=== PATIENT | female | born 1940 | race Caucasian/White ===

== ENCOUNTER 2022-07-16 09:46 | Outpatient (CLI) | payer MEDICARE, SELFPAY ==
--- NOTE | ~2022-07-16 | MM_ITS ---
EXAMINATION: MM screening joseph BI w starr HISTORY: Screening mammogram TECHNIQUE: Craniocaudal and mediolateral oblique 3-D tomosynthesis images were obtained and synthetic 2-D images were generated. CAD analysis was submitted and interpreted. COMPARISON: 06/16/2018 postbiopsy mammogram 05/20/2018 bilateral screening mammogram BREAST PARENCHYMAL COMPOSITION: There are scattered areas of fibroglandular density. FINDINGS: Multiple scattered bilateral microcalcifications are noted. There is no evidence of suspici ous mass, calcification, or architectural distortion to suggest malignancy in either breast. There newton s been no suspicious interval change. IMPRESSION: 1. No mammographic evidence of malignancy. 2. Recommend routine screening mammography in one year. BI-RADS Category 2: Benign finding(s). Reviewed, dictated and finalized at location A. [employer]
--- NOTE | ~2022-07-16 | DEXA_ITS ---
Bone Density Report Name: HEIDY CAMPBELL Age: 82 Sex: Female Ethnicity: White Date of : 1940 Indication: postmenopausal; screening for osteoporosis; height loss; hysterectomy; Referring Provider: LEMUEL KRAMER Study: Bone densitometry was performed. Exam Date: July 16, 2022 Accession number: [id number] Bone Density: Region BMD T-score Z-score Classification AP Spine(L1, L2, L3) 1.092 0.7 3.4 Normal Femoral Neck (Left) 0.687 -1.5 0.9 Osteopenia Total Hip (Left) 0.826 -1.0 1.2 Normal Femoral Neck (Right) 0.759 -0.8 1.6 Normal Total Hip (Right) 0.861 -0.7 1.5 Normal Total Hip Mean 0.843 -0.9 1.4 Normal World Health Organization criteria for BMD impression classify patients as: Normal (T-score at or above -1.0), Osteopenia (T-score between -1.0 and -2.5), or Osteoporosis (T-score at or below -2.5). 10-year Fracture Risk(1): Major Osteoporotic Fracture 13% Hip Fracture 3.4% Reported Risk Factors: [place] (), Neck BMD=0.687, BMI=25.4 (1) FRAX(R) Version 3.08. Fracture probability calculated for an untreated patient. Fracture probability may be lower if the patient has received treatment. Clinical Information Provided by Patient: Has used the following medications: HRT (i.e. estrogen/hormone therapy), Vitamin D, Calcium Has the following medical conditions: Hysterectomy Patient maximum height was 67.5 Menopause Age: 55 No regular weight bearing exercise Drinks caffeinated beverages Onset of menses at age 10 Number of children 3 Impression: The patient has low bone mass, based on the Left Femoral Neck T-score. The patient has an estimated ten-year risk of hip fracture of 3.4% and an estimated ten-year risk of major fracture of 13%, based on the WHO FRAX algorithm. Discussion: BONE DENSITY IS LOW AT ONE OR MORE SKELETAL SITES. THE PATIENT'S BMD AND CLINICAL RISK FACTORS CONTRIBUTE TO THIS PATIENT'S INCREASED RISK OF FRACTURE. This patient's lowest T-score is low at one or more skeletal sites. It meets the World Health Organization's (WHO) criteria for ?low bone mass? (T-score between -1.0 and -2.5). The patient's 10-year risk of hip fracture as calculated by FRAX exceeds the threshold where pharmacological therapy is recommended by the National Osteoporosis Foundation (NOF). However, all treatment decisions require clinical judgment and consideration of individual patient factors, including patient preferences, comorbidities, previous drug use, risk factors not captured in the FRAX model (e.g., frailty, falls, vitamin D deficiency, increased bone turnover, interval significant decline in bone density) and possible under or overestimation of fracture risk by FRAX. The patient should follow a healthful lifestyle (good nutrition with adequate calcium and vitamin D
== END 2022-07-16 09:47 | disposition home or self-care (01) ==
PROVIDERS: PCP Internal Medicine; Visit Provider Obstetrics & Gynecology Gynecology
DX: Z12.31 Encounter for screening mammogram for malignant neoplasm of breast (principal); Z78.0 Asymptomatic menopausal state; M85.852 Other specified disorders of bone density and structure, left thigh
CPT/HCPCS: 77063; 77067; 77080

== ENCOUNTER 2023-04-15 15:27 | Inpatient (IN) | payer MEDICARE, SELFPAY ==
--- NOTE | ~2023-04-15 | XR_ITS ---
EXAMINATION: XR chest 2V 04/15/2023 16:21 INDICATION: Cough with fever and chills PROCEDURE: 2 view chest COMPARISON: No prior studies for comparison. FINDINGS: The lungs are clear. The cardiomediastinal silhouette is within normal limits. There are no pleural effusions. There is no pneumothorax suspected. IMPRESSION: 1: NO ACUTE CARDIOPULMONARY DISEASE. Reviewed, dictated and finalized at location L.
[2023-04-15 15:46] VITALS: BP 121/55; PULSE 82; RESP 18; TEMP 36.6; O2SAT 99
[2023-04-15 16:39] LABS: Basophils Absolute Auto 0.1 K/mm3 (0.0-0.1); Basophils Percent Auto 0.4 % (0.2-1.2); Eosinophils Absolute Auto 0.1 K/mm3 (0-0.3); Eosinophils Percent Auto 0.6 % (0-4.4); Hematocrit 36.8 % (37.0-47.0); Hemoglobin 12.1 g/dL (12.0-15.0); Immature Granulocyte Absolute 0.11 K/mm3 (0.00-0.031); Immature Granulocyte Percent A 0.6 % (0-0.5); Lymphocytes Absolute Auto 2.14 K/mm3 (0.9-3.2); Lymphocytes Percent Auto 11.1 % (18.3-44.2); Mean Corpuscular HGB Conc 32.9 g/dl (32-36); Mean Corpuscular Hemoglobin 31.4 pg (26-34); Mean Corpuscular Volume 95.6 fl (80-100); Monocytes Absolute Auto 1.5 K/mm3 (0.1-0.6); Monocytes Percent Auto 7.6 % (2.6-8.5); Neutrophils Absolute Auto 15.3 K/mm3 (1.3-6.7); Neutrophils Percent Auto 79.7 % (45.5-73.1); Platelet Count Result 273 k/mm3 (150-375); Red Blood Count 3.85 M/mm3 (4.2-5.4); Red Cell Distribution Width 13.1 % (11.5-14.5); White Blood Count 19.2 K/mm3 (4.5-10.0)
[2023-04-15 16:51] LABS: Lactic Acid Reflex 1.9 mmol/L (0.7-2.0)
[2023-04-15 16:53] LABS: Alanine Aminotransferase 38 U/L (6-35); Albumin Level 4.5 g/dL (3.5-5.1); Alkaline Phosphatase 90 U/L (38-126); Anion Gap 8 mmol/L (8-16); Aspartate Amino Transferase 46 U/L (14-36); Bilirubin,Total 0.9 mg/dL (0.2-1.3); Blood Urea Nitrogen 20 mg/dL (7-17); Calcium 9.4 mg/dL (8.4-10.2); Carbon Dioxide 29 mmol/L (22-30); Chloride 94 mmol/L (98-107); Estimated CRCL calculation 29 ml/min; Estimated Glomerular Filt Rate 43; Glucose 129 mg/dL (65-110); Potassium 3.7 mmol/L (3.4-5.0); Sodium 131 mmol/L (137-145)
[2023-04-15 16:56] LABS: INR 1.1; Prothrombin Time 14.5 Seconds (11.1-14.7)
[2023-04-15 16:57] LABS: Partial Thromboplastin Time 37.9 SECONDS (22.3-36.8)
[2023-04-15 17:03] LABS: CRP 25.3 mg/dL (<1.0)
[2023-04-15 17:23] LABS: Appearance Urine Turbid (Clear); Bacteria Urine 4+ /hpf; Bilirubin Urine Negative (Negative); Blood Urine 2+ (Negative); Color Urine Dark Yellow (Yellow); Glucose Urine UA Negative (Negative); Hyaline Casts Urine Present /lpf; Ketones Urine Negative (Negative); Leukocyte Esterase Ur 3+ LEU/UL (Negative); Need Manual Microscopic Reviewed; Nitrate Urine Negative (Negative); Non Pathogenic Casts >20; Protein Urine 2+ mg/dL (Negative); Specific Grav Ur 1.018 (1.001-1.035); Squamous Epithelial Cell Urine Moderate /hpf (Few); Transitional Epi Cells Urine Present /hpf (None Seen); Urobilinogen Urine 0.2 mg/dL (<2.0); WBC Clumps Urine Present /HPF; WBC Urine >100 /hpf
[2023-04-15 17:26] LABS: Add Urine Microscopic? YES
--- NOTE | 2023-04-15 17:43 | ED.FEVER ---
HPI - Fever General Chief Complaint: Fever Stated Complaint: sent by PCP for test Time Seen by Provider: 04/15/23 16:16 Source: patient and RN notes reviewed Mode of arrival: ambulatory Limitations: no limitations History of Present Illness HPI Narrative: This is an 82 year old female with history of hypertension, hyperlipidemia, anxiety who presents for evaluation of fever. PAtient reports she has been having fever and chills since Friday. She reports t max 101.9, and she had fever at noon. She has weakness when she has a fever. She denies vomiting, diarrhea, cough, chest pain, abdominal pain. She reports chronic back pain from sciatica. She was seen by PCP who referred patient to ER. MD elicited complaint: fever Related Data Home Medications Medication Instructions Recorded Confirmed amlodipine 5 mg tablet 5 mg PO DAILY 04/15/23 04/15/23 aspirin 81 mg tablet,delayed 81 mg PO DAILY 04/15/23 04/15/23 release (Adult Low Dose Aspirin) atorvastatin 20 mg tablet 20 mg PO DAILY 04/15/23 04/15/23 calcium carbonate 600 mg calcium 600 mg PO DAILY 04/15/23 04/15/23 (1,500 mg) tablet (Calcium) cholecalciferol (vitamin D3) 125 125 mcg PO DAILY 04/15/23 04/15/23 mcg (5,000 unit) capsule cholecalciferol (vitamin D3) 25 25 mcg PO DAILY 04/15/23 04/15/23 mcg (1,000 unit) capsule clorazepate dipotassium 15 mg 7.5 mg PO DAILY 04/15/23 04/15/23 tablet diphenhydramine HCl 25 mg capsule 25 mg PO HS 04/15/23 04/15/23 (Benadryl) docusate sodium 50 mg capsule 50 mg PO HS 04/15/23 04/15/23 furosemide 20 mg tablet 20 mg PO DAILY 04/15/23 04/15/23 multivitamin (Multiple Vitamins 1 tablet PO DAILY 04/15/23 04/15/23 tablet) Allergies Allergy/AdvReac Type Severity Reaction Status Date / Time propoxyphene Allergy Severe PASSING OUT Verified 04/15/23 18:17 alendronate sodium Allergy Intermediate STOMACH Verified 04/15/23 18:17 PAINS codeine Allergy Intermediate DIZZINESS Verified 04/15/23 18:17 tramadol Allergy Intermediate Nausea and Verified 04/15/23 18:17 Vomiting BANDAIDS Allergy Intermediate BROKEN SKIN Uncoded 04/15/23 14:04 BONIVA Allergy Intermediate FEVER Uncoded 04/15/23 14:04 Review of Systems Review of Systems: All systems reviewed & are unremarkable except as noted in HPI and below PMFSH Past Medical History Medical History (Updated 04/15/23 @ 20:42 by Shannon Borjas PA-C) Anxiety Hyperlipidemia Hypertension Family History Family History Father Family history of congestive heart failure Other Cerebrovascular accident Family history of Alzheimer's disease Family history of cardiovascular disease Hypertension Social History Social History Social History: Smoking status: Never smoker Second hand tobacco smoke exposure: No Alcohol intake: never Substance use: never Substance use type: does not use Lack of Transportation: No Lack of Food: Never True Current Housing: I Have Housing Concerned About Future Housing: No Difficulty Paying Gas/Electric Bills: No Difficulty Paying for Meds: No Currently Unemployed: No Education: High School Diploma/GED Difficulty w/ Childcare or Family Care: No Living arrangements: with family Occupation/Education: retired Gender identity (if verbalized by the patient): Female Sexual Orientation (if Verbalized by the Patient): Straight or Heterosexual Spiritual care concerns: No Exam Const: General: no acute distress and alert Orientation/consciousness: patient oriented x3 HENMT: Head: normal to inspection Face and sinus: normal facial exam Mouth: Yes Normal oral and palatal mucosa present Throat: posterior oropharynx normal and uvula midline Eyes: EOM: EOMs intact bilaterally Chest: Chest palpation & inspection: normal inspection of the chest Resp: Effort & Inspection: normal respiratory e
[2023-04-15] MEDS: SODIUM CHLORIDE 0.9% IV 1,000 ML 999 ML IV CONT (18:18)
[2023-04-15] MEDS: ACETAMINOPHEN 325 MG TABLET 650 MG PO (18:58)
[2023-04-15 20:10] VITALS: BP 135/74; PULSE 82; RESP 20; O2SAT 97
[2023-04-15 20:15] VITALS: BP 135/45; PULSE 87; RESP 17; TEMP 36.7; O2SAT 98; BMI 26.2
[2023-04-15 20:17] VITALS: BMI 26.2
--- NOTE | 2023-04-15 20:20 | ADMGEN ---
This patient, Lizette Escobar, was admitted to 2 Medical Room 260-01. Patient/family oriented to hospital policies and general routines including ID bracelet, bed and alarms, visiting hours, pain management, procedures, bathroom and other care routines, personal items, smoking policy, room service/diet, and visiting hours. Information on how to activate the Rapid Response Team has been discussed. Patient/Family are encouraged to report perceived risks to care and to ask questions if they do not understand what they are told or what they should do.
--- NOTE | 2023-04-15 20:35 | PM.IMHP ---
H&P: HPI History of Present Illness Date/Time: 04/15/23 17:30 Chief Complaint: Fever and shaking chills. Narrative: This is a pleasant 82-year-old female with hypertension hyperlipidemia, and anxiety who presented to the emergency department from Dr. Ceja's office for evaluation of fever and shaking chills. The patient provides the following history. Friday evening she got up to go to the restroom when she suddenly began to feel cold and had shaking chills. She took her temperature which was reportedly just over 101? and she has been running a fever since that time. Tylenol keeps her temperature down for about 4 to 6 hours but it continues to return. She also reports feeling generally weak and tells me that her legs ?felt like mush? 2 nights ago and she slumped down onto the ground onto her knees. Her appetite has also been poor. She denies headache, cold and flu symptoms, nausea, vomiting, diarrhea, and dysuria. She tested negative for COVID at home. She denies sick contacts. In the ED: She was afebrile on arrival with stable vital signs. Labs were significant for WBC count of 19.2 sodium 131, chloride 94, BUN 20, creatinine 1.20, lactic acid 1.9, CRP 25.3. UA showed 3+ leukocyte esterase, greater than 100 wbc's, and 4+ bacteria. Chest x-ray showed no acute cardiopulmonary disease. In the ED she was given a L of normal saline and 1 g of ceftriaxone. She is being admitted in this setting for IV antibiotics given her urinary tract infection. She is surprised that she has UTI as she does not have any typical symptoms that she has had with previous urine infections. Review of Systems Review of Systems: Twelve systems were reviewed and are negative except for as per HPI. [facility] Past Medical History Medical History (Updated 04/15/23 @ 20:42 by Shannon Borjas PA-C) Anxiety Hyperlipidemia Hypertension Surgical History Surgical History (Updated 04/16/23 @ 15:29 by Shannon Borjas PA-C) History of total right knee replacement Family History Family History Father Family history of congestive heart failure Other Cerebrovascular accident Family history of Alzheimer's disease Family history of cardiovascular disease Hypertension Social History Social History (Updated 04/16/23 @ 15:29 by Shannon Borjas PA-C) Social History: Surrogate medical decision maker: Billie Beth, daughter. Code status: Full code. Smoking status: Never smoker Second hand tobacco smoke exposure: No Alcohol intake: never Substance use: never Substance use type: does not use Lack of Transportation: No Lack of Food: Never True Current Housing: I Have Housing Concerned About Future Housing: No Difficulty Paying Gas/Electric Bills: No Difficulty Paying for Meds: No Currently Unemployed: No Education: High School Diploma/GED Difficulty w/ Childcare or Family Care: No Living arrangements: with family Occupation/Education: retired Spiritual care concerns: No Meds Home Medications and Allergies Home Medications Medication Instructions Recorded Confirmed Type amlodipine 5 mg tablet 5 mg PO DAILY 04/15/23 04/15/23 History aspirin 81 mg tablet,delayed 81 mg PO DAILY 04/15/23 04/15/23 History release (Adult Low Dose Aspirin) atorvastatin 20 mg tablet 20 mg PO DAILY 04/15/23 04/15/23 History calcium carbonate 600 mg calcium 600 mg PO DAILY 04/15/23 04/15/23 History (1,500 mg) tablet (Calcium) cholecalciferol (vitamin D3) 125 125 mcg PO DAILY 04/15/23 04/15/23 History mcg (5,000 unit) capsule clorazepate dipotassium 15 mg 7.5 mg PO DAILY 04/15/23 04/15/23 History tablet diphenhydramine HCl 25 mg capsule 25 mg PO HS 04/15/23 04/15/23 History (Benadryl) docusate sodium 50 mg capsule 50 mg PO HS 04/15/23 04/15/23 History furosemide 20 mg tablet 20 mg PO DAILY 04/15/23 04/15/23 History multivitamin (Multiple Vitamins 1 tablet
[2023-04-15] MEDS: SODIUM CHLORIDE 0.9% IV 1,000 ML 100 ML IV CONT (21:03)
[2023-04-16] MEDS: MELATONIN 3 MG TABLET 6 MG PO ×2 (01:30→20:35)
[2023-04-16 05:27] VITALS: BP 132/48; PULSE 84; RESP 18; TEMP 36.8; O2SAT 94
[2023-04-16 05:47] LABS: Basophils Absolute Auto 0.1 K/mm3 (0.0-0.1); Basophils Percent Auto 0.4 % (0.2-1.2); Eosinophils Absolute Auto 0.1 K/mm3 (0-0.3); Eosinophils Percent Auto 0.3 % (0-4.4); Hematocrit 31.8 % (37.0-47.0); Hemoglobin 10.6 g/dL (12.0-15.0); Immature Granulocyte Percent A 0.6 % (0-0.5); Lymphocytes Absolute Auto 1.87 K/mm3 (0.9-3.2); Lymphocytes Percent Auto 11.8 % (18.3-44.2); Mean Corpuscular HGB Conc 33.3 g/dl (32-36); Mean Corpuscular Hemoglobin 31.6 pg (26-34); Mean Corpuscular Volume 94.9 fl (80-100); Mean Platelet Volume 11.9 fl (7.4-10.4); Monocytes Absolute Auto 1.1 K/mm3 (0.1-0.6); Monocytes Percent Auto 7.1 % (2.6-8.5); Neutrophils Absolute Auto 12.7 K/mm3 (1.3-6.7); Neutrophils Percent Auto 79.8 % (45.5-73.1); Platelet Count Result 235 k/mm3 (150-375); Red Blood Count 3.35 M/mm3 (4.2-5.4); Red Cell Distribution Width 12.9 % (11.5-14.5); White Blood Count 15.9 K/mm3 (4.5-10.0)
[2023-04-16 05:59] LABS: Alanine Aminotransferase 31 U/L (6-35); Albumin Level 3.6 g/dL (3.5-5.1); Alkaline Phosphatase 72 U/L (38-126); Anion Gap 6 mmol/L (8-16); Aspartate Amino Transferase 40 U/L (14-36); Bilirubin,Total 0.5 mg/dL (0.2-1.3); Blood Urea Nitrogen 15 mg/dL (7-17); Calcium 8.4 mg/dL (8.4-10.2); Carbon Dioxide 26 mmol/L (22-30); Chloride 100 mmol/L (98-107); Estimated CRCL calculation 38 ml/min; Estimated Glomerular Filt Rate 60; Glucose 119 mg/dL (65-110); Potassium 3.8 mmol/L (3.4-5.0); Sodium 132 mmol/L (137-145)
[2023-04-16] MEDS: ENOXAPARIN 40 MG/0.4 ML SYRINGE SUB-Q (09:12)
[2023-04-16] MEDS: ATORVASTATIN 20 MG TABLET PO (11:55)
[2023-04-16] MEDS: MULTIVITAMINS THERAPEUTIC TAB (*BKC) 1 TABLET PO (11:55)
[2023-04-16] MEDS: ASPIRIN 81 MG ENTERIC TABLET PO (11:55)
[2023-04-16] MEDS: FUROSEMIDE 20 MG TABLET PO (11:55)
[2023-04-16] MEDS: amLODIPine BESYLATE 5 MG TABLET PO (11:55)
--- NOTE | 2023-04-16 12:47 | PM.IMPN ---
Progress Note: A&P Assessment and Plan (1) Sepsis: Code(s): A41.9 - Sepsis, unspecified organism Status: Acute Assessment and Plan: Related to urinary tract infection. Treating UTI with IV antibiotics pending urine culture. White blood cell count is improving but still elevated. (2) Urinary tract infection: Code(s): N39.0 - Urinary tract infection, site not specified Status: Acute Assessment and Plan: See 1. (3) Renal insufficiency: Code(s): N28.9 - Disorder of kidney and ureter, unspecified Status: Acute Assessment and Plan: Estimated GFR 43 upon admission, currently 60 IV fluid resuscitation (4) Generalized weakness: Code(s): R53.1 - Weakness Status: Acute Assessment and Plan: Ordered PT and OT as patient's biggest complaint is generalized weakness for the past week (5) Hypertension: Code(s): I10 - Essential (primary) hypertension Status: Acute Assessment and Plan: Stable, continue home medications, blood pressure reviewed on 04/16 (6) Hyperlipidemia: Code(s): E78.5 - Hyperlipidemia, unspecified Status: Acute Assessment and Plan: Stable continue home medications (7) Anxiety: Code(s): F41.9 - Anxiety disorder, unspecified Status: Acute Assessment and Plan: Stable continue home medications Time Spent With Patient Time with patient: 25 - 35 minutes Subjective Date/time seen: 04/16/23 12:47 Interval history: Patient was admitted due to urinary tract infection findings of sepsis. She reports that she is feeling better today had a slight temperature elevation of 90 this morning otherwise her fever chills have subsided. Review of Systems Review of Systems: Twelve systems were reviewed and are negative except for as per HPI. Exam Narrative: General: Well-developed, nontoxic-appearing female sitting up in no acute distress. HEENT: PERRL, EOMI. Sclera anicteric. Tacky mucous membranes. Neck: Supple. No JVD Respiratory: Lungs are clear to auscultation bilaterally. Cardiovascular: Regular rate and rhythm with S1-S2. Gastrointestinal: Abdomen is soft, nontender, and nondistended with positive bowel sounds. No CVA tenderness. Skin: Warm and dry. No rash or lesions on limited exam. Extremities: No cyanosis or clubbing. 1+ pedal edema bilaterally. Radial and pedal pulses intact. Neurological: Alert. Cranial nerves 2-12 are grossly intact. Speech is clear. No gross focal deficits to casual conversation. Psychiatric: Pleasant and cooperative with normal mood and affect. Objective Data Vital Signs Vital Signs: Vital Signs - 24 hr 04/15/23 15:46 04/15/23 20:10 04/15/23 20:15 Temperature 36.6 C 36.7 C Pulse Rate 82 82 87 Respiratory Rate 18 20 17 Blood Pressure 121/55 L 135/74 135/45 L Pulse Oximetry 99 97 98 Oxygen Delivery Room Air 04/16/23 05:27 04/16/23 08:00 Temperature 36.8 C Pulse Rate 84 Respiratory Rate 18 Blood Pressure 132/48 L Pulse Oximetry 94 Oxygen Delivery Room Air Intake/Output Intake/Output: Intake & Output 04/13/23 04/14/23 04/15/23 04/16/23 23:59 23:59 23:59 23:59 Intake Total 1050 670 Output Total 500 400 Balance 550 270 Meds/Results Medications: Active Medications Generic Name Dose Route Start Last Admin Trade Name Freq PRN Reason Stop Dose Admin Acetaminophen 650 mg 04/15/23 18:08 04/15/23 18:58 Acetaminophen 325 Mg Tablet PO 650 mg Q4H PRN Administration Mild Pain (1-3) or Fever Amlodipine Besylate 5 mg 04/16/23 11:10 04/16/23 11:55 Amlodipine Besylate 5 Mg Tablet PO 5 mg DAILY GM Administration Aspirin 81 mg 04/16/23 11:10 04/16/23 11:55 Aspirin 81 Mg Enteric Tablet PO 81 mg DAILY GM Administration Atorvastatin Calcium 20 mg 04/16/23 11:10 04/16/23 11:55 Atorvastatin 20 Mg Tablet PO 20 mg DAILY GM Administration Calcium Carbonate
[2023-04-16 14:00] VITALS: BP 130/43; PULSE 80; RESP 16; TEMP 36.9; O2SAT 92
[2023-04-16] MEDS: CHOLECALCIFEROL 1,000 UNITS TABLET 5000 UNITS PO (16:16)
[2023-04-16 20:00] VITALS: PULSE 82; RESP 18; O2SAT 94
[2023-04-16] MEDS: diphenhydrAMINE HCl CAP 25 MG CAPSULE PO (20:35)
[2023-04-16] MEDS: DOCUSATE SODIUM 100 MG CAPSULE PO (20:35)
[2023-04-16 20:42] VITALS: BP 129/50; PULSE 82; RESP 18; TEMP 37.1; O2SAT 94
[2023-04-16 23:54] VITALS: O2SAT 93
[2023-04-17 05:15] LABS: Basophils Percent Auto 0.4 % (0.2-1.2); Eosinophils Absolute Auto 0.5 K/mm3 (0-0.3); Eosinophils Percent Auto 4.1 % (0-4.4); Hematocrit 29.3 % (37.0-47.0); Hemoglobin 9.7 g/dL (12.0-15.0); Immature Granulocyte Absolute 0.06 K/mm3 (0.00-0.031); Immature Granulocyte Percent A 0.5 % (0-0.5); Lymphocytes Absolute Auto 2.09 K/mm3 (0.9-3.2); Lymphocytes Percent Auto 18.4 % (18.3-44.2); Mean Corpuscular HGB Conc 33.1 g/dl (32-36); Mean Corpuscular Volume 93.6 fl (80-100); Mean Platelet Volume 11.2 fl (7.4-10.4); Monocytes Absolute Auto 1.2 K/mm3 (0.1-0.6); Monocytes Percent Auto 10.2 % (2.6-8.5); Neutrophils Absolute Auto 7.5 K/mm3 (1.3-6.7); Neutrophils Percent Auto 66.4 % (45.5-73.1); Platelet Count Result 231 k/mm3 (150-375); Red Blood Count 3.13 M/mm3 (4.2-5.4); Red Cell Distribution Width 13.1 % (11.5-14.5); White Blood Count 11.3 K/mm3 (4.5-10.0)
--- NOTE | 2023-04-17 05:23 | PC.NURSE ---
this RN called Dr Seo with new results for preliminary blood culture. no orders
[2023-04-17 05:29] LABS: Alanine Aminotransferase 27 U/L (6-35); Albumin Level 3.2 g/dL (3.5-5.1); Alkaline Phosphatase 68 U/L (38-126); Anion Gap 3 mmol/L (8-16); Aspartate Amino Transferase 38 U/L (14-36); Bilirubin,Total 0.4 mg/dL (0.2-1.3); Blood Urea Nitrogen 14 mg/dL (7-17); Calcium 8.1 mg/dL (8.4-10.2); Carbon Dioxide 28 mmol/L (22-30); Chloride 98 mmol/L (98-107); Estimated CRCL calculation 42 ml/min; Estimated Glomerular Filt Rate > 60; Glucose 112 mg/dL (65-110); Potassium 3.3 mmol/L (3.4-5.0); Sodium 129 mmol/L (137-145)
[2023-04-17 05:36] VITALS: BP 135/64; PULSE 78; RESP 18; TEMP 36.8; O2SAT 96
[2023-04-17 09:50] VITALS: BP 127/49; PULSE 100
[2023-04-17] MEDS: ASPIRIN 81 MG ENTERIC TABLET PO (09:55)
[2023-04-17] MEDS: amLODIPine BESYLATE 5 MG TABLET PO (09:55)
[2023-04-17] MEDS: ENOXAPARIN 40 MG/0.4 ML SYRINGE SUB-Q (09:56)
[2023-04-17] MEDS: ATORVASTATIN 20 MG TABLET PO (09:56)
[2023-04-17] MEDS: FUROSEMIDE 20 MG TABLET PO (09:57)
[2023-04-17] MEDS: MULTIVITAMINS THERAPEUTIC TAB (*BKC) 1 TABLET PO (09:57)
[2023-04-17] MEDS: CLORAZEPATE DIPOTASSIUM (*CRX) 7.5 MG TABLET PO (09:58)
[2023-04-17] MEDS: CHOLECALCIFEROL 1,000 UNITS TABLET 5000 UNITS PO (09:58)
[2023-04-17 10:12] VITALS: BP 128/61; PULSE 91
--- NOTE | 2023-04-17 12:43 | PM.IMPN ---
Progress Note: A&P Assessment and Plan (1) Sepsis: Code(s): A41.9 - Sepsis, unspecified organism Status: Acute Assessment and Plan: E coli bacteremia stemming from urinary tract infection. Escalate ceftriaxone to 2 g Q 24 hours with discovery of positive blood cultures white blood cell counts are improving initially 19.2 now 11.3 (2) Urinary tract infection: Code(s): N39.0 - Urinary tract infection, site not specified Status: Acute Assessment and Plan: E coli that is pansensitive. (3) Renal insufficiency: Code(s): N28.9 - Disorder of kidney and ureter, unspecified Status: Acute Assessment and Plan: Resolved (4) Generalized weakness: Code(s): R53.1 - Weakness Status: Acute Assessment and Plan: PT OT ordered, patient reports improvement today (5) Hypertension: Code(s): I10 - Essential (primary) hypertension Status: Acute Assessment and Plan: Stable, blood pressure reviewed 04/17 (6) Hyperlipidemia: Code(s): E78.5 - Hyperlipidemia, unspecified Status: Acute Assessment and Plan: Stable continue home medications (7) Anxiety: Code(s): F41.9 - Anxiety disorder, unspecified Status: Acute Assessment and Plan: Stable continue home medications Plan Escalate IV antibiotics due to findings of E coli bacteremia Time Spent With Patient Time with patient: 25 - 35 minutes Subjective Date/time seen: 04/17/23 12:43 Interval history: Patient reports that her strength is much better today. She is eagerly awaiting discharge home. Review of Systems Review of Systems: All systems reviewed & are unremarkable except as noted in HPI and below Exam Narrative: General: Well-developed, nontoxic-appearing female sitting up in bedside chair, no acute distress. HEENT: PERRL, EOMI. Sclera anicteric. Moist mucous membranes. Neck: Supple. No JVD Respiratory: Lungs are clear to auscultation bilaterally. Cardiovascular: Regular rate and rhythm with S1-S2. Gastrointestinal: Abdomen is soft, nontender, and nondistended with positive bowel sounds. No CVA tenderness. Skin: Warm and dry. No rash or lesions on limited exam. Extremities: No cyanosis or clubbing. 1+ pedal edema bilaterally. Radial and pedal pulses intact. Neurological: Alert. Cranial nerves 2-12 are grossly intact. Speech is clear. No gross focal deficits to casual conversation. Psychiatric: Pleasant and cooperative with normal mood and affect. Objective Data Vital Signs Vital Signs: Vital Signs - 24 hr 04/16/23 14:00 04/16/23 20:42 04/16/23 20:00 Temperature 36.9 C 37.1 C Pulse Rate 80 82 82 Respiratory Rate 16 18 18 Blood Pressure 130/43 L 129/50 L Pulse Oximetry 92 94 94 Oxygen Delivery Room Air 04/16/23 23:54 04/17/23 05:36 04/17/23 09:50 Temperature 36.8 C Pulse Rate 78 100 Respiratory Rate 18 Blood Pressure 135/64 127/49 L Pulse Oximetry 93 96 Oxygen Delivery Room Air 04/17/23 10:12 Temperature Pulse Rate 91 Respiratory Rate Blood Pressure 128/61 Pulse Oximetry Oxygen Delivery Intake/Output Intake/Output: Intake & Output 04/14/23 04/15/23 04/16/23 04/17/23 23:59 23:59 23:59 23:59 Intake Total 1050 1700 390 Output Total 500 800 950 Balance 550 900 -560 Meds/Results Medications: Active Medications Generic Name Dose Route Start Last Admin Trade Name Freq PRN Reason Stop Dose Admin Acetaminophen 650 mg 04/15/23 18:08 04/15/23 18:58 Acetaminophen 325 Mg Tablet PO 650 mg Q4H PRN Administration Mild Pain (1-3) or Fever Amlodipine Besylate 5 mg 04/16/23 11:10 04/17/23 09:55 Amlodipine Besylate 5 Mg Tablet PO 5 mg DAILY GM Administration Aspirin 81 mg 04/16/23 11:10 04/17/23 09:55 Aspirin 81 Mg Enteric Tablet PO 81 mg DAILY GM Administration Atorvastatin Calcium 20 mg 04/16/23 11:10 04/17/23 09:56 Atorvastatin 2
--- NOTE | 2023-04-17 13:24 | PC.NURSE ---
On 04/17/23, the student, [Amanda Wheeler], provided care and completed [facility] documentation on this patient. I have reviewed the student's documentation and agree with the findings.
[2023-04-17 13:49] VITALS: BP 124/59; PULSE 89; RESP 18; TEMP 36.9; O2SAT 99
[2023-04-17] MEDS: POTASSIUM CHLORIDE 20 MEQ ER TABLET 40 MEQ PO (15:00)
[2023-04-17] MEDS: CALCIUM CARBONATE (OSCAL) 500 MG TABLET PO (15:01)
[2023-04-17 20:51] VITALS: BP 129/60; PULSE 80; RESP 20; TEMP 36.9; O2SAT 97
[2023-04-17] MEDS: MELATONIN 3 MG TABLET 6 MG PO (21:38)
[2023-04-17] MEDS: diphenhydrAMINE HCl CAP 25 MG CAPSULE PO (21:38)
[2023-04-17] MEDS: cefTRIAXone 2 GM/NS 100 ML 2 GM/100 ML BAG IVPB (21:38)
[2023-04-17] MEDS: DOCUSATE SODIUM 100 MG CAPSULE PO (21:39)
[2023-04-18 05:13] LABS: Basophils Percent Auto 0.5 % (0.2-1.2); Eosinophils Absolute Auto 0.6 K/mm3 (0-0.3); Hematocrit 29.5 % (37.0-47.0); Hemoglobin 9.8 g/dL (12.0-15.0); Immature Granulocyte Absolute 0.04 K/mm3 (0.00-0.031); Immature Granulocyte Percent A 0.5 % (0-0.5); Lymphocytes Percent Auto 21.8 % (18.3-44.2); Mean Corpuscular HGB Conc 33.2 g/dl (32-36); Mean Corpuscular Hemoglobin 31.1 pg (26-34); Mean Corpuscular Volume 93.7 fl (80-100); Mean Platelet Volume 11.5 fl (7.4-10.4); Monocytes Absolute Auto 0.9 K/mm3 (0.1-0.6); Monocytes Percent Auto 10.1 % (2.6-8.5); Neutrophils Absolute Auto 5.3 K/mm3 (1.3-6.7); Neutrophils Percent Auto 60.1 % (45.5-73.1); Platelet Count Result 265 k/mm3 (150-375); Red Blood Count 3.15 M/mm3 (4.2-5.4); White Blood Count 8.7 K/mm3 (4.5-10.0)
[2023-04-18 05:21] LABS: Alanine Aminotransferase 31 U/L (6-35); Albumin Level 3.2 g/dL (3.5-5.1); Alkaline Phosphatase 77 U/L (38-126); Anion Gap 5 mmol/L (8-16); Aspartate Amino Transferase 42 U/L (14-36); Bilirubin,Total 0.4 mg/dL (0.2-1.3); Blood Urea Nitrogen 14 mg/dL (7-17); Calcium 8.3 mg/dL (8.4-10.2); Carbon Dioxide 27 mmol/L (22-30); Chloride 100 mmol/L (98-107); Estimated CRCL calculation 42 ml/min; Estimated Glomerular Filt Rate > 60; Glucose 110 mg/dL (65-110); Potassium 3.7 mmol/L (3.4-5.0); Sodium 132 mmol/L (137-145)
[2023-04-18 05:29] VITALS: BP 125/58; PULSE 73; RESP 18; TEMP 36.5; O2SAT 96
[2023-04-18 09:41] VITALS: BP 125/60; PULSE 84; RESP 16; O2SAT 100
[2023-04-18] MEDS: CHOLECALCIFEROL 1,000 UNITS TABLET 5000 UNITS PO (09:46)
[2023-04-18] MEDS: ASPIRIN 81 MG ENTERIC TABLET PO (09:47)
[2023-04-18] MEDS: ENOXAPARIN 40 MG/0.4 ML SYRINGE SUB-Q (09:47)
[2023-04-18] MEDS: ATORVASTATIN 20 MG TABLET PO (09:47)
[2023-04-18] MEDS: MULTIVITAMINS THERAPEUTIC TAB (*BKC) 1 TABLET PO (09:47)
[2023-04-18] MEDS: amLODIPine BESYLATE 5 MG TABLET PO (09:47)
[2023-04-18] MEDS: CALCIUM CARBONATE (OSCAL) 500 MG TABLET PO (09:47)
[2023-04-18] MEDS: FUROSEMIDE 20 MG TABLET PO (09:47)
[2023-04-18] MEDS: CLORAZEPATE DIPOTASSIUM (*CRX) 7.5 MG TABLET PO (09:47)
--- NOTE | 2023-04-18 10:42 | PCOTNOTE ---
Attempted to see pt. for occupational therapy evaluation. Pt. is stand by assist in room, declining additional therapy service needs. Nursing aware and states pt. D/C to home with family today. Following for any additional need prior to D/C
--- NOTE | 2023-04-18 10:49 | PM.DS ---
DS: Admitting Diagnosis Discharge Date 04/18/23 Admitting Diagnosis sepsis UTI DS: Discharge Diagnosis Discharge Diagnosis (1) Acute UTI: Code(s): N39.0 - Urinary tract infection, site not specified Status: Acute (2) Sepsis: Code(s): A41.9 - Sepsis, unspecified organism Status: Acute (3) Bacteremia due to Escherichia coli: Code(s): R78.81 - Bacteremia; B96.20 - Unspecified Escherichia coli [E. coli] as the cause of diseases classified elsewhere Status: Acute DS: Summary Hospital Course Reason for hospitalization: sepsis Hospital Course: Patient is an 82-year-old female with past medical history of essential hypertension, hyperlipidemia, anxiety presents to ED with fevers and chills. Patient was found to have an urinary tract infection with E coli and bacteremia. She was found to have sepsis on admission. She was hospitalized from 04/15 to 04/18. She had clinical improvement with IV antibiotics Rocephin. Her labs normalized from leukocytosis on presentation at 15.9k improving to 8.7k. Patient has chronic hyponatremia sodium 132. Patient is ambulating well and will not need therapies. The E coli on cultures was pansensitive. With the Ecoli bacteremia patient will be given 2 weeks of cefdinir. at time of discharge patient's labs are stable, vitals stable, patient is stable for discharge home. Patient understands and agrees with plan. Patient's family updated bedside. Status at Discharge Cognitive/behavioral status at discharge: baseline Time Spent with Patient Time attestation: Total time spent providing and/or coordinating discharge services: 35 Exam Narrative: - GENERAL: Pleasant elderly woman in no acute distress. Well-nourished. - EYES: EOMI. Anicteric. - HENT: Moist mucous membranes. - LUNGS: Clear to auscultation bilaterally, no wheezing, rhonchi, or rales. - CARDIOVASCULAR: Regular rate and rhythm. No murmur. No JVD. - ABDOMEN: Soft, non-tender and non-distended. No palpable masses. - EXTREMITIES: No edema. Peripheral pulses 2+. Non-tender. - NEUROLOGIC: No focal neurological deficits. CN II-XII grossly intact. - PSYCHIATRIC: Awake, Alert and oriented x 3. Appropriate mood and affect. - SKIN: No rashes or lesions. Warm. - LYMPH: No cervical lymphadenopathy. DS: Data Data Completed and Pending Labs on day of discharge: Labs from last 24 hours 04/18/23 04:44 WBC 8.7 RBC 3.15 L Hgb 9.8 L Hct 29.5 L MCV 93.7 MCH 31.1 MCHC 33.2 RDW 13.0 Plt Count 265 MPV 11.5 H Immature Gran % (Auto) 0.5 Neut % (Auto) 60.1 Lymph % (Auto) 21.8 [place] % (Auto) 10.1 H Eos % (Auto) 7.0 H Baso % (Auto) 0.5 Lymph # (Auto) 1.90 [place] # (Auto) 0.9 H Eos # (Auto) 0.6 H Baso # (Auto) 0.0 Abs Immat Gran (auto) 0.04 H Absolute Neuts (auto) 5.3 Absolute Nucleated RBC 0.0 Nucleated RBC % 0.0 Sodium 132 L Potassium 3.7 Chloride 100 Carbon Dioxide 27 Anion Gap 5 L BUN 14 Creatinine 0.80 Estim Creat Clear Calc 42 Estimated GFR > 60 Glucose 110 Calcium 8.3 L Total Bilirubin 0.4 AST 42 H ALT 31 Alkaline Phosphatase 77 Total Protein 7.0 Albumin 3.2 L Preliminary micro results at discharge 04/15/23 18:13 Blood Culture - Preliminary Blood Gram negative bacilli isolated 04/15/23 18:13 Blood Culture - Preliminary Blood Gram negative bacilli isolated Imaging Radiologist's impression: Chest x-ray 04/15: no acute cardiopulmonary disease Discharge Plan Discharge Attending physician on discharge: Vicky Genao Discharging Clinician: Vicky Genao Anticipated Discharge Date/Time: 04/18/23 10:44 Patient Disposition: Home, Self-Care Activity: may shower Diet: regular Discharge Instructions: Please complete 2 weeks of antibiotic cefdinir for E coli urinary tract and blood infection. Follow-up with PCP in 1 week. Patient Instructions: Antibiotic Form, Safe Use of Anticoagulants (GEN) Leobardo
== END 2023-04-18 13:55 | disposition home or self-care (01) | DRG 872 ==
LOC: ANHED 18:08 → ANH2MED 19:47
PROVIDERS: Nurse Practitioner; Nurse Practitioner Family; Admitting Provider Student in an Organized Health Care Education/Training Program; Emergency Provider General Practice; PCP Family Medicine; Visit Provider Student in an Organized Health Care Education/Training Program
DX: A41.51 Sepsis due to Escherichia coli [E. coli] (principal); N39.0 Urinary tract infection, site not specified; E87.1 Hypo-osmolality and hyponatremia; E78.5 Hyperlipidemia, unspecified; I10 Essential (primary) hypertension; N28.9 Disorder of kidney and ureter, unspecified; M54.30 Sciatica, unspecified side; F41.9 Anxiety disorder, unspecified; Z79.82 Long term (current) use of aspirin
CPT/HCPCS: 36415; 71046; 80053; 81001; 83605; 83735; 85025; 85610; 85730; 86140; 87040; 87077; 87086; 87186; 96365; 96372; 97161; 99285; A9270; G0378; J0696; J1650; J7030

== ENCOUNTER 2023-11-25 13:41 | Outpatient (CLI) | payer MEDICARE, SELFPAY ==
[2023-11-25 14:39] LABS: Basophils Absolute Auto 0.1 K/mm3 (0.0-0.1); Basophils Percent Auto 0.8 % (0.2-1.2); Eosinophils Absolute Auto 0.3 K/mm3 (0-0.3); Eosinophils Percent Auto 3.2 % (0-4.4); Hematocrit 38.1 % (37.0-47.0); Hemoglobin 12.5 g/dL (12.0-15.0); Immature Granulocyte Absolute 0.03 K/mm3 (0.00-0.031); Immature Granulocyte Percent A 0.3 % (0-0.5); Mean Corpuscular HGB Conc 32.8 g/dl (32-36); Mean Corpuscular Hemoglobin 30.4 pg (26-34); Mean Corpuscular Volume 92.7 fl (80-100); Mean Platelet Volume 11.8 fl (7.4-10.4); Monocytes Absolute Auto 0.8 K/mm3 (0.1-0.6); Monocytes Percent Auto 8.6 % (2.6-8.5); Neutrophils Absolute Auto 5.3 K/mm3 (1.3-6.7); Neutrophils Percent Auto 57.1 % (45.5-73.1); Platelet Count Result 317 k/mm3 (150-375); Red Blood Count 4.11 M/mm3 (4.2-5.4); Red Cell Distribution Width 12.7 % (11.5-14.5); White Blood Count 9.3 K/mm3 (4.5-10.0)
[2023-11-28 17:38] LABS: Vitamin D 1,25 (OH)2 Total 32 pg/mL (18-72); Vitamin D2 1,25 (OH)2 <8 pg/mL; Vitamin D3 1,25 (OH)2 32 pg/mL
== END 2023-11-25 13:42 | disposition home or self-care (01) ==
PROVIDERS: PCP Family Medicine; Visit Provider Family Medicine
DX: D72.829 Elevated white blood cell count, unspecified (principal); E83.52 Hypercalcemia
CPT/HCPCS: 36415; 82652; 85025

== ENCOUNTER 2024-03-01 13:17 | Outpatient (CLI) | payer MEDICARE, SELFPAY ==
--- NOTE | ~2024-03-01 | MM_ITS ---
EXAMINATION: MM screening joseph BI w starr HISTORY: Screening TECHNIQUE: Craniocaudal and mediolateral oblique 3-D tomosynthesis images were obtained and synthetic 2-D images were generated. CAD analysis was submitted and interpreted. COMPARISON: Comparison to multiple prior studies sequentially, with oldest reviewed study dated 04/20. BREAST PARENCHYMAL COMPOSITION: Not dense: There are scattered areas of fibroglandular density. FINDINGS: Stable bilateral breast calcifications. There is no evidence of suspicious mass, calcificat ion, or architectural distortion to suggest malignancy in either breast. There has been no suspicious interval change. IMPRESSION: 1. No mammographic evidence of malignancy. 2. Recommend routine screening mammography in one year. BI-RADS Category 2: Benign finding(s). Reviewed, dictated and finalized at location B.
== END 2024-03-01 13:18 | disposition home or self-care (01) ==
LOC: ANHIMG 13:18
PROVIDERS: PCP Family Medicine; Visit Provider Obstetrics & Gynecology Gynecology
DX: Z12.31 Encounter for screening mammogram for malignant neoplasm of breast (principal)
CPT/HCPCS: 77063; 77067

== ENCOUNTER 2024-04-19 11:20 | Outpatient (CLI) | payer MEDICARE, SELFPAY ==
[2024-04-19 11:48] LABS: Calcium 9.6 mg/dL (8.4-10.2)
[2024-04-19 12:03] LABS: Parathyroid Intact 31.3 pg/mL (14.5-75.2)
== END 2024-04-19 11:21 | disposition home or self-care (01) ==
PROVIDERS: PCP Family Medicine; Visit Provider Student in an Organized Health Care Education/Training Program
DX: E83.52 Hypercalcemia (principal)
CPT/HCPCS: 36415; 82310; 83970